=== PATIENT | female | born 1995 | race Caucasian/White ===

== ENCOUNTER → 2019-01-09 | Outpatient (CLI) | payer BC ==
--- NOTE | 2019-01-09 07:38 | US ---
EXAMINATION TYPE: US thyroid st tissue head/neck DATE OF EXAM: 01/09/2019 COMPARISON: Thyroid ultrasound of 2017. CLINICAL HISTORY: Z86.39 Personal history of other endocrine, nutrit. Thyroid nodules. GLAND SIZE: Right Lobe: 4.1 x 1.3 x 1.4 cm Overall Parenchyma: homogenous Left Lobe: 4.7 x 1.3 x 1.6 cm Overall Parenchyma: homogeneous Isthmus Thickness: .3 cm NODULES RIGHT: # of nodules measured on right: Two subcentimeter nodules seen measuring 2 mm. LEFT: # of nodules measured on left: Nodules from previous not seen on today's study. ISTHMUS: # of nodules measured in the isthmus: 0 Bilateral neck scanned, no evidence of lymphadenopathy. IMPRESSION: Very small 2 mm right thyroid nodules. The left thyroid nodule measuring 3 mm on the prio r exam of 2017 is no longer seen today.
== END | disposition home or self-care (01) ==
LOC: RADUSWWP 06:52
PROVIDERS: ATTEND Family Medicine
DX: Z09 Encounter for follow-up examination after completed treatment for conditions other than malignant neoplasm (principal); E04.2 Nontoxic multinodular goiter; Z86.39 Personal history of other endocrine, nutritional and metabolic disease
CPT/HCPCS: 76536

== ENCOUNTER → 2020-10-21 | Outpatient (CLI) | payer BC ==
[2020-10-21 15:49] LABS: HCT 42.9 % (37.2-46.3); HGB 14.4 g/dL (12.0-15.0); MCHC 33.6 g/dL (32.0-37.0); MCV 89.4 fL (80.0-97.0); Mean Platelet Volume 10.4 fL (9.5-12.2); Platelet Count 336 X 10*3/uL (140-440); RDW 11.9 % (11.5-14.5); WBC 7.75 X 10*3/uL (4.50-10.00)
[2020-10-21 22:40] LABS: DHEA Sulfate 332.5 ug/dL (26.0-430.0)
[2020-10-21 22:43] LABS: African American GFR (CKD) 101.6 (60.0-200.0); Albumin 4.5 g/dL (3.80-4.90); Albumin/Globulin Ratio 2.14 (1.60-3.17); Anion Gap 12.8 mmol/L (4.00-12.00); BUN/Creat Ratio 12.22 Ratio (12.00-20.00); Calcium 8.9 mg/dL (8.7-10.3); Carbon Dioxide 20.2 mmol/L (21.6-31.8); Chol/HDL Ratio 3.47; Globulin 2.1 g/dL (1.6-3.3); Insulin Level 16.9 mIU/mL (3.0-25.0); LDL Cholesterol,Calculated 118.8 mg/dL (0.0-131.0); Non-African American GFR(CKD) 87.6 (60.0-200.0); Potassium 4.2 mmol/L (3.5-5.5); Total Bilirubin 0.7 mg/dL (0.2-1.2); Total Protein 6.6 g/dL (6.2-8.2); VLDL Calculation 17.2 mg/dL (5.00-40.00)
[2020-10-21 22:51] LABS: Estradiol 152.5 pg/mL; Follicle Stimulating Hormone 2.5 mIU/mL; Luteinizing Hormone 4.8 mIU/mL
== END | disposition home or self-care (01) ==
LOC: LABWHC1 08:10
PROVIDERS: ATTEND Obstetrics & Gynecology
DX: N91.5 Oligomenorrhea, unspecified (principal)
CPT/HCPCS: 36415; 80053; 80061; 82627; 82670; 83001; 83002; 83036; 83525; 84402; 84439; 84443; 85027

== ENCOUNTER → 2021-12-01 | Outpatient (CLI) | payer BC ==
--- NOTE | 2021-12-01 15:54 | US ---
EXAMINATION TYPE: US thyroid st tissue head/neck DATE OF EXAM: 12/01/2021 COMPARISON: US 2019 CLINICAL HISTORY: Z86.39 HISTORY OF THYROID NODULE. GLAND SIZE: Right Lobe: 5.3 x 1.4 x 1.6 cm Overall Parenchyma: homogenous Left Lobe: 5.4 x 1.1 x 1.3 cm Overall Parenchyma: homogeneous Isthmus Thickness: 0.3 cm NODULES RIGHT: # of nodules measured on right: 0 LEFT: # of nodules measured on left: 0 ISTHMUS: # of nodules measured in the isthmus: 0 Bilateral neck scanned, no evidence of lymphadenopathy. Thyroid echotexture is homogenous and symmetric IMPRESSION: Normal thyroid ultrasound 2017 ACR TI-RADS LEVEL: *Highest TI-RADS level nodule reported
== END | disposition home or self-care (01) ==
LOC: RADUSWWP 12:56
PROVIDERS: ATTEND Family Medicine
DX: Z86.39 Personal history of other endocrine, nutritional and metabolic disease (principal)
CPT/HCPCS: 76536